=== PATIENT | female | born 1975 | race Hispanic/Latino ===

== ENCOUNTER 2021-02-13 17:02 | Emergency (ER) | payer SELFPAY ==
[2021-02-13] MEDS ORDERED: METRONIDAZOLE 500mg IVPB 500 MG/100 ML BAG IV ONE (17:44)
[2021-02-13] MEDS ORDERED: CEFTRIAXONE/SWI 1gm 1 GM/10 ML SYR ONE ×2 (17:44→20:03)
[2021-02-13] MEDS ORDERED: MORPHINE 4 MG/ML SYR ONE (17:44)
[2021-02-13] MEDS ORDERED: ONDANSETRON 4 MG/2 ML VIAL ONE ×2 (17:44→18:02)
[2021-02-13] MEDS ORDERED: NA CHLORIDE 0.9% 1,000 ML ONE (17:44)
[2021-02-13 17:49] LABS: Absolute Lymphocytes (CBC) 2.4 K/uL (0.7-4.9); Basophils % 0.7 % (0-1.3); Hematocrit 38.9 % (36.0-45.0); Lymphocytes % 30.6 % (15.3-44.8); MPV 8.9 fL (7.6-11.3); RBC Red Blood Cell Count 4.49 M/uL (3.86-4.86)
[2021-02-13 18:06] LABS: ALT/SGPT 75 U/L (12-78); AST/SGOT 39 U/L (15-37); Albumin 3.5 g/dL (3.4-5.0); Alkaline Phosphatase 95 U/L (45-117); BUN Blood Urea Nitrogen 12 mg/dL (7-18); Bicarbonate 24 mmol/L (21-32); Bilirubin Direct < 0.1 mg/dL (0-0.2); Bilirubin Total 0.3 mg/dL (0.2-1.0); Glucose Level 145 mg/dL (74-106); Lipase 81 U/L (73-393); Potassium 3.5 mmol/L (3.5-5.1); Protein, Total 7.1 g/dL (6.4-8.2); Sodium Level 139 mmol/L (136-145)
--- NOTE | 2021-02-13 19:00 | RAD REPORT ---
EXAM DESCRIPTION: Jean Single View02/13/2021 5:54 pm CLINICAL HISTORY: Abdominal COMPARISON: none FINDINGS: The lungs appear clear of acute infiltrate. The heart is normal size IMPRESSION: No acute abnormalities displayed
--- NOTE | 2021-02-13 19:00 | RAD REPORT ---
EXAM DESCRIPTION: CT - Angio Aorta For Dissection - 02/13/2021 6:43 pm CLINICAL HISTORY: . Chest and abdominal pain COMPARISON: None TECHNIQUE: Computed tomography angiography of the chest, abdomen pelvis were obtained. 100 cc Isovue 370 was administered intravenously. Coronal and sagittal reconstruction were performed. MIP 3D reconstruction was performed All CT scans are performed using dose optimization technique as appropriate and may include automated exposure control or mA/KV adjustment according to patient size. FINDINGS: An aortic dissection is not seen. An aortic aneurysm is not displayed. The celiac, SMA and KWAME are patent . A lung consolidation is not present. A pericardial effusion is not seen. A pleural effusion is not n oted. Fatty liver. Liver is borderline enlarged Spleen, pancreas adrenals kidneys demonstrate no significant abnormality. The appendix is normal. Diverticula stem from the colon. Minimal stranding adjacent sigmoid colon. Th is is compatible with diverticulitis. 2 centimeter right ovarian cyst without significant. Small uterine fibroids IMPRESSION: Negative for an aortic dissection. Minimal sigmoid diverticulitis
--- NOTE | 2021-02-13 19:38 | RAD REPORT ---
EXAM DESCRIPTION: USExtrem Venous W Compress Bil02/13/2021 7:32 pm CLINICAL HISTORY: Leg pain COMPARISON: none FINDINGS: The common femoral, superficial femoral, popliteal and posterior tibial veins bilaterally are compressible and demonstrate augmentation. Doppler demonstrates good flow. IMPRESSION: No evidence of deep venous thrombosis involving either lower extremity.
[2021-02-13 19:42] LABS: Urine Blood Trace-intact (Negative); Urine Glucose Negative (Negative); Urine Protein Negative (Negative); Urine Specific Gravity <=1.005 (1.005-1.030)
[2021-02-13] MEDS ORDERED: FAMOTIDINE 20 MG/2 ML VIAL IV ONE (20:03)
--- NOTE | 2021-02-13 21:19 | ER ---
Nurse's Notes [facility] Name: Kiki Santa Age: 45 yrs Sex: Female : 1975 Arrival Date: 02/13/2021 Time: 17:06 Bed 13 Private MD: Diagnosis: Abdominal tenderness;Diverticular disease of intestine;Diverticulitis of intestine, part unspecified, without perforation or abscess without bleeding-sigmoid;Type 2 diabetes mellitus Presentation: 02/13 17:13 Chief complaint: Patient states: LUQ pain for 11 days, was started an antibiotic em without relief, reports nausea, denies fever. Coronavirus screen: Client denies travel out of the [place] in the last 14 days. Ebola Screen: Patient negative for fever greater than or equal to 101.5 degrees Fahrenheit, and additional compatible Ebola Virus Disease symptoms Patient denies exposure to infectious person. Patient denies travel to an Ebola-affected area in the 21 days before illness onset. No symptoms or risks identified at this time. Initial Sepsis Screen: Does the patient meet any 2 criteria? No. Patient's initial sepsis screen is negative. Does the patient have a suspected source of infection? No. Patient's initial sepsis screen is negative. Risk Assessment: Do you want to hurt yourself or someone else? Patient reports no desire to harm self or others. Onset of symptoms was February 13, 2021. 17:13 Method Of Arrival: Ambulatory em 17:13 Acuity: MAYANK 3 em Historical: - Allergies: 17:17 Hydrocodone-Acetaminophen; em - PMHx: 17:15 None; em - PSHx: 17:15 None; em - Immunization history:: Adult Immunizations up to date. - Social history:: Smoking status: Patient denies any tobacco usage or history of. - Family history:: not pertinent. Screenin:04 Abuse screen: Denies threats or abuse. Nutritional screening: No deficits noted. vg1 Tuberculosis screening: No symptoms or risk factors identified. Fall Risk No fall in past 12 months (0 pts). No secondary diagnosis (0 pts). IV access (20 points). Ambulatory Aid- None/Bed Rest/Nurse Assist (0 pts). Gait- Weak (10 pts.). Mental Status- Oriented to own ability (0 pts). Total Riggs Fall Scale indicates No Risk (0-24 pts). Assessment: 18:02 General: Appears in no apparent distress. uncomfortable, Behavior is cooperative, vg1 crying. Pain: Complains of pain in epigastric area, left upper quadrant and left lower quadrant Pain currently is 10 out of 10 on a pain scale. Pain began 2 hours ago. Noted to be crying. Neuro: Level of Consciousness is awake, alert, obeys commands, Oriented to person, place, time, situation. Cardiovascular: Patient's skin is warm and dry. Respiratory: Airway is patent Respiratory effort is even, unlabored. GI: Bowel sounds present X 4 quads. Abd is soft X 4 quads Abd is non tender in left upper quadrant. : No signs and/or symptoms were reported regarding the genitourinary system. EENT: No signs and/or symptoms were reported regarding the EENT system. Derm: Skin is intact, is healthy with good turgor. Musculoskeletal: Circulation, motion, and sensation intact. 19:58 Reassessment: Patient appears in no apparent distress at this time. Patient and/or vg1 family updated on plan of care and expected duration. Pain level reassessed. Patient is alert, oriented x 3, equal unlabored respirations, skin warm/dry/pink. Patient states feeling better. 21:10 Reassessment: Patient appears in no apparent distress at this time. No changes from vg1 previously documented assessment. Patient and/or family updated on plan of care and expected duration. Pain level reassessed. Patient is alert, oriented x 3, equal unlabored respirations, skin warm/dry/pink. Vital Signs: 17:13 BP 139 / 79; Pulse 74; Resp 18; Temp 97.2; Pulse Ox 99% on R/A; Weight 75 kg; Height 5 em ft. 5 in. (165.10 cm); 18:04 BP 169 / 90; Pulse 99; Resp 20; Pulse Ox 96% on R/A; vg1 19:50 BP 134 / 89; Pulse 70; Resp 16; Pulse Ox 100% on R/A; vg1 21:00 BP 115 / 81; Pulse 64; Resp 16; Pulse Ox 100% on R/A; vg1 17:13 Body Mass Index 27.51 (75.00 kg, 165.10 cm) em ED Course: 17:06 Patient arrived in ED. mr 17:11 Madan Collins MD is Attending Physician. gerardo 17:15 Triage completed. em 17:15 Arm band placed on. em 17:27 Oral contrast given. vm2 17:38 Inserted saline lock: 20 gauge in right antecubital area, using aseptic technique. hb Blood collected. 17:51 Ladonna Branch, RN is Primary Nurse. vg1 17:54 Chest Single View XRAY In Process Unspecified. EDMS 18:04 Patient has correct armband on for positive identification. Bed in low position. Call vg1 light in reach. Side rails up X 1. Adult w/ patient. 18:[address] via stretcher. vg1 18:36 EKG done, by ED staff, reviewed by Madan Collins MD COVID swab sent to lab. vg1 18:42 CT Aorta for Dissection In Process Unspecified. EDMS 19:32 US Extremity Venous W Compression Carmelo In Process Unspecified. EDMS 21:12 Hadley Alberts MD is Referral Physician. gerardo 21:40 No provider procedures requiring assistance completed. IV discontinued, intact, vg1 bleeding controlled, No redness/swelling at site. Pressure dressing applied. Administered Medications: 17:41 Drug: Flagyl (metroNIDAZOLE) 500 mg Volume: 100 ml; Route: IVPB; Rate: 200 ml/hr; hb Infused Over: 30 mins; Site: right antecubital; 17:41 Drug: morphine 2 mg Route: IVP; Site: right antecubital; hb 17:41 Drug: Zofran (Ondansetron) 4 mg Route: IVP; Site: right antecubital; hb 17:42 Drug: NS 0.9% 1000 ml Route: IV; Rate: 1 bolus; Site: right antecubital; hb 21:42 Follow up: IV Status: Completed infusion; IV Intake: 1000ml vg1 17:42 Drug: Rocephin (cefTRIAXone) 1 grams Route: IV; Rate: per protocol; Site: right hb antecubital; 17:53 Drug: Zofran (Ondansetron) 4 mg Route: IVP; Site: right antecubital; vg1 18:30 Follow up: Response: No adverse reaction; Nausea is decreased vg1 19:51 Drug: Pepcid (famotidine) 20 mg Route: IVP; Site: right antecubital; vg1 21:40 Follow up: Response: No adverse reaction vg1 19:53 Drug: Rocephin (cefTRIAXone) 1 grams Route: IV; Rate: per protocol; Site: right vg1 antecubital; 21:40 Follow up: IV Status: Completed infusion vg1 21:40 Follow up: Response: No adverse reaction vg1 19:58 Not Given (Patient Refused): Dilaudid (HYDROmorphone) 0.5 mg IVP once; RASS on ADMIN: vg1 Combtv4, Very Agttd3, Agttd2, Rstlss1, AlertClm0, Drwsy-1, Lt Sdtn-2, Mod Sdtn-3, Dp Sdtn-4, UnArsble-5 Intake: 21:42 IV: 1000ml; Total: 1000ml. vg1 Outcome: 21:19 Discharge ordered by . [facility] 21:41 Discharged to home ambulatory, with family. vg1 21:41 Condition: stable 21:41 Discharge instructions given to patient, Instructed on discharge instructions, follow up and referral plans. medication usage, Demonstrated understanding of instructions, follow-up care, medications, Prescriptions given X 5 21:42 Patient left the ED. vg1 Signatures: Dispatcher [employer] Madan Chen MD MD cha Rivera, Di Manohar Castorena RN RN em Baxter, Heather, ROBBIE AVALOS Ladonna Cottrell Ladonna oMrgan, RN RN vg1 Corrections: (The following items were deleted from the chart) 17:17 17:15 Allergies: No Known Allergies; em em
--- NOTE | 2021-02-13 21:20 | EDPHYS ---
Physician Documentation [facility] Name: Kiki Santa Age: 45 yrs Sex: Female : 1975 Arrival Date: 02/13/2021 Time: 17:06 Bed 13 Private MD: ED Physician Madan Collins HPI: 02/13 17:18 This 45 yrs old Female presents to ER via Ambulatory with complaints of gerardo Abdominal Pain. 17:18 The patient presents with abdominal pain abdominal distention in the upper abdomen, in gerardo the lower abdomen. Onset: The symptoms/episode began/occurred 5 day(s) ago. The symptoms do not radiate. Associated signs and symptoms: Pertinent positives: nausea. The symptoms are described as constant, crampy. Modifying factors: The symptoms are alleviated by remaining still, the symptoms are aggravated by movement, pressure, walking. Severity of pain: At its worst the pain was moderate in the emergency department the pain is unchanged. The patient has not experienced similar symptoms in the past. Historical: - Allergies: 17:17 Hydrocodone-Acetaminophen; em - PMHx: 17:15 None; em - PSHx: 17:15 None; em - Immunization history:: Adult Immunizations up to date. - Social history:: Smoking status: Patient denies any tobacco usage or history of. - Family history:: not pertinent. ROS: 17:18 Constitutional: Negative for fever, chills, and weight loss, Eyes: Negative for injury, gerardo pain, redness, and discharge, ENT: Negative for injury, pain, and discharge, Neck: Negative for injury, pain, and swelling, Cardiovascular: Negative for chest pain, palpitations, and edema, Respiratory: Negative for shortness of breath, cough, wheezing, and pleuritic chest pain, Back: Negative for injury and pain, : Negative for injury, bleeding, discharge, and swelling, MS/Extremity: Negative for injury and deformity, Skin: Negative for injury, rash, and discoloration, Neuro: Negative for headache, weakness, numbness, tingling, and seizure, Psych: Negative for depression, anxiety, suicide ideation, homicidal ideation, and hallucinations, Allergy/Immunology: Negative for hives, rash, and allergies, Endocrine: Negative for neck swelling, polydipsia, polyuria, polyphagia, and marked weight changes, Hematologic/Lymphatic: Negative for swollen nodes, abnormal bleeding, and unusual bruising. 17:18 Abdomen/GI: Positive for abdominal pain, nausea, of the left upper quadrant and left lower quadrant. Exam: 17:18 Constitutional: This is a well developed, well nourished patient who is awake, alert, gerardo and in no acute distress. Head/Face: Normocephalic, atraumatic. Eyes: Pupils equal round and reactive to light, extra-ocular motions intact. Lids and lashes normal. Conjunctiva and sclera are non-icteric and not injected. Cornea within normal limits. Periorbital areas with no swelling, redness, or edema. ENT: Nares patent. No nasal discharge, no septal abnormalities noted. Tympanic membranes are normal and external auditory canals are clear. Oropharynx with no redness, swelling, or masses, exudates, or evidence of obstruction, uvula midline. Mucous membranes moist. Neck: Trachea midline, no thyromegaly or masses palpated, and no cervical lymphadenopathy. Supple, full range of motion without nuchal rigidity, or vertebral point tenderness. No Meningismus. Chest/axilla: Normal chest wall appearance and motion. Nontender with no deformity. No lesions are appreciated. Cardiovascular: Regular rate and rhythm with a normal S1 and S2. No gallops, murmurs, or rubs. Normal PMI, no JVD. No pulse deficits. Respiratory: Lungs have equal breath sounds bilaterally, clear to auscultation and percussion. No rales, rhonchi or wheezes noted. No increased work of breathing, no retractions or nasal flaring. Back: No spinal tenderness. No costovertebral tenderness. Full range of motion. Skin: Warm, dry with normal turgor. Normal color with no rashes, no lesions, and no evidence of cellulitis. MS/ Extremity: Pulses equal, no cyanosis. Neurovascular intact. Full, normal range of motion. Neuro: Awake and alert, GCS 15, oriented to person, place, time, and situation. Cranial nerves II-XII grossly intact. Motor strength 5/5 in all extremities. Sensory grossly intact. Cerebellar exam normal. Normal gait. Psych: Awake, alert, with orientation to person, place and time. Behavior, mood, and affect are within normal limits. 17:18 Abdomen/GI: Inspection: abdomen appears normal, Bowel sounds: normal, Palpation: moderate abdominal tenderness, in the left upper quadrant and left lower quadrant, Liver: no appreciated palpable abnormalities, Hernia: not appreciated. 21:26 ECG was reviewed by the Attending Physician. [facility] Vital Signs: 17:13 BP 139 / 79; Pulse 74; Resp 18; Temp 97.2; Pulse Ox 99% on R/A; Weight 75 kg; Height 5 em ft. 5 in. (165.10 cm); 18:04 BP 169 / 90; Pulse 99; Resp 20; Pulse Ox 96% on R/A; vg1 19:50 BP 134 / 89; Pulse 70; Resp 16; Pulse Ox 100% on R/A; vg1 21:00 BP 115 / 81; Pulse 64; Resp 16; Pulse Ox 100% on R/A; vg1 17:13 Body Mass Index 27.51 (75.00 kg, 165.10 cm) em MDM: 17:20 Differential diagnosis: bowel obstruction, diverticulitis, gastritis, Irritable bowel gerardo syndrome, Mesenteric ischemia or infarction, non-specific abd pain, pancreatitis, Perf. Gastric Ulcer, Peritonitis, Ureterolithiasis, urinary tract infection. Data reviewed: vital signs, nurses notes, lab test result(s), EKG, radiologic studies, CT scan, plain films. Data interpreted: ceramic engineer: rate is 74 beats/min, rhythm is regular, Pulse oximetry: on room air is 99 %. Test interpretation: by ED physician or midlevel provider: plain radiologic studies. Counseling: I had a detailed discussion with the patient and/or guardian regarding: the historical points, exam findings, and any diagnostic results supporting the discharge/admit diagnosis, lab results, radiology results. 17:23 Patient medically screened. [facility] 02/13 17:15 Order name: Basic Metabolic Panel [facility] 02/13 17:15 Order name: CBC with Diff [facility] 02/13 17:15 Order name: Hepatic Function [facility] 02/13 17:15 Order name: Lipase [facility] 02/13 17:15 Order name: Urine Culture [facility] 02/13 17:15 Order name: Basic Metabolic Panel; Complete Time: 19:39 [facility] 02/13 17:15 Order name: Liver (Hepatic) Function; Complete Time: 19:39 [facility] 02/13 17:15 Order name: CBC with Automated Diff; Complete Time: 17:56 [facility] 02/13 17:15 Order name: Lipase; Complete Time: 19:39 [facility] 02/13 17:15 Order name: Urine Culture [facility] 02/13 17:59 Order name: Troponin (emerg Dept Use Only); Complete Time: 19:39 [facility] 02/13 18:01 Order name: Test, Serum [facility] 02/13 18:31 Order name: CREATININE WHOLE BLOOD; Complete Time: 19:39 [facility] 02/13 17:15 Order name: Chest Single View XRAY; Complete Time: 19:39 [facility] 02/13 17:59 Order name: CT Aorta for Dissection; Complete Time: 19:39 [facility] 02/13 18:01 Order name: US Extremity Venous W Compression Carmelo; Complete Time: 19:39 [facility] 02/13 19:42 Order name: Urine Dipstick-Ancillary; Complete Time: 21:11 [facility] 02/13 20:51 Order name: SARS-COV-2 RT PCR; Complete Time: 21:11 [facility] 02/13 17:15 Order name: IV Saline Lock; Complete Time: 17:52 [facility] 02/13 17:15 Order name: Labs collected and sent; Complete Time: 17:52 [facility] 02/13 17:15 Order name: Urine Dipstick-Ancillary (obtain specimen); Complete Time: 19:42 [facility] 02/13 17:15 Order name: Urine Test (obtain specimen); Complete Time: 19:42 [facility] 02/13 17:59 Order name: EKG; Complete Time: 18:00 [facility] 02/13 17:59 Order name: EKG - Nurse/Tech; Complete Time: 18:36 gerardo EC:26 Rate is 85 beats/min. Rhythm is regular. QRS [place] is Normal. WA interval is normal. QRS gerardo interval is normal. QT interval is normal. No Q waves. T waves are Normal. No ST changes noted. Clinical impression: Normal ECG and No evidence of ischemia. Interpreted by me. Reviewed by me. Administered Medications: 17:41 Drug: Flagyl (metroNIDAZOLE) 500 mg Volume: 100 ml; Route: IVPB; Rate: 200 ml/hr; hb Infused Over: 30 mins; Site: right antecubital; 17:41 Drug: morphine 2 mg Route: IVP; Site: right antecubital; hb 17:41 Drug: Zofran (Ondansetron) 4 mg Route: IVP; Site: right antecubital; hb 17:42 Drug: NS 0.9% 1000 ml Route: IV; Rate: 1 bolus; Site: right antecubital; hb 21:42 Follow up: IV Status: Completed infusion; IV Intake: 1000ml vg1 17:42 Drug: Rocephin (cefTRIAXone) 1 grams Route: IV; Rate: per protocol; Site: right hb antecubital; 17:53 Drug: Zofran (Ondansetron) 4 mg Route: IVP; Site: right antecubital; vg1 18:30 Follow up: Response: No adverse reaction; Nausea is decreased vg1 19:51 Drug: Pepcid (famotidine) 20 mg Route: IVP; Site: right antecubital; vg1 21:40 Follow up: Response: No adverse reaction vg1 19:53 Drug: Rocephin (cefTRIAXone) 1 grams Route: IV; Rate: per protocol; Site: right vg1 antecubital; 21:40 Follow up: IV Status: Completed infusion vg1 21:40 Follow up: Response: No adverse reaction vg1 19:58 Not Given (Patient Refused): Dilaudid (HYDROmorphone) 0.5 mg IVP once; RASS on ADMIN: vg1 Combtv4, Very Agttd3, Agttd2, Rstlss1, AlertClm0, Drwsy-1, Lt Sdtn-2, Mod Sdtn-3, Dp Sdtn-4, UnArsble-5 Disposition: 02/13/21 21:19 Discharged to Home. Impression: Abdominal tenderness, Diverticular disease of intestine, Diverticulitis of intestine, part unspecified, without perforation or abscess without bleeding - sigmoid, Type 2 diabetes mellitus. - Condition is Stable. - Discharge Instructions: Abdominal Pain, Adult, Diverticulitis, Diverticulitis, [id number], Abdominal Pain, Adult, [id number]. - Prescriptions for Bentyl 20 mg Oral Tablet - take 1 tablet by ORAL route every 6 hours As needed; 20 tablet. Colace 100 mg Oral Tablet - take 1 tablet by ORAL route every 12 hours; 14 tablet. Flagyl 500 mg Oral Tablet - take 1 tablet by ORAL route every 6 hours for 10 days; 20 tablet. Levaquin 500 mg Oral Tablet - take 1 tablet by ORAL route once daily for 7 days; 7 tablet. Zofran 4 mg Oral Tablet - take 1 tablet by ORAL route every 12 hours As needed; 20 tablet. - Medication Reconciliation Form, Thank You Letter, Antibiotic Education, Prescription Opioid Use form. - Follow up: Private Physician; When: 2 - 3 days; Reason: Recheck today's complaints, Continuance of care, Re-evaluation by your physician. Follow up: Hadley Alberts MD; When: 2 - 3 days; Reason: Recheck today's complaints, Re-evaluation by your physician. - Problem is new. - Symptoms have improved. Signatures: Dispatcher [employer] EDMS Madan Collins MD MD cha Munoz, Edgar, RN RN em Emily Cortez, RN RN Ladonna Branch, RN RN vg1 Corrections: (The following items were deleted from the chart) 17:17 17:15 Allergies: No Known Allergies; em em 18:04 17:15 Abdomen Pelvis W Con+CT.RAD.BRZ ordered. [facility] EDTN 20:10 17:55 CORONAVIRUS+MR.LAB.BRZ ordered. [facility] 21:42 21:19 02/13/2021 21:19 Discharged to Home. Impression: Abdominal tenderness; vg1 Diverticular disease of intestine; Diverticulitis of intestine, part unspecified, without perforation or abscess without bleeding - sigmoid; Type 2 diabetes mellitus. Condition is Stable. Forms are Medication Reconciliation Form, Thank You Letter, Antibiotic Education, Prescription Opioid Use. Follow up: Private Physician; When: 2 - 3 days; Reason: Recheck today's complaints, Continuance of care, Re-evaluation by your physician. Follow up: Hadley Alberts; When: 2 - 3 days; Reason: Recheck today's complaints, Re-evaluation by your physician. Problem is new. Symptoms have improved. gerardo
[2021-02-13 22:17] VITALS: TEMP 97.2
[2021-02-13 22:20] VITALS: O2SAT 100
[2021-02-13 22:21] VITALS: BP 115/81
== END 2021-02-13 21:42 | disposition home or self-care (01) ==
LOC: ER 17:02
DX: K57.32 Diverticulitis of large intestine without perforation or abscess without bleeding (principal); K57.30 Diverticulosis of large intestine without perforation or abscess without bleeding; E11.9 Type 2 diabetes mellitus without complications; Z20.822 Contact with and (suspected) exposure to COVID-19; Z88.5 Allergy status to narcotic agent
CPT/HCPCS: 36415; 71045; 71275; 74175; 80048; 80076; 81003; 82565; 83690; 84484; 84703; 85025; 87086; 87088; 93970; 96361; 96365; 96366; 96375; 99284; J0696; J2405; J7030; Q9967; U0003

== ENCOUNTER 2024-01-06 17:06 | Emergency (ER) | payer SELFPAY ==
--- OUTSIDE RECORDS SUMMARY | 2024-01-06 17:09 | XMS REPORT | Continuity of Care Document ---
Author Name Unknown Address [address] [place] [address] [facility] thconnect Address [address] [place] [address] Care Team Providers Care Roofing Technician Name Role Phone Unavailable Unavailable Unavailable Encounters Start Date/Time End Date/Time Encounter Type Admission Type Attending Clinicians Care Facility Care Department Encounter ID Source 2024-01-06 14:14:52 2024-01-06 14:14:52 Outpatient [facility] [id number] Immanuel Felix 2023-07-13 12:08:29 2023-07-13 12:08:29 Outpatient [facility] [id number] Immanuel Felix 2023-05-01 14:49:18 2023-05-01 14:49:18 Outpatient [facility] [id number] Immanuel Felix Results Test Description Test Time Test Comments Results Result Co mments Source HPV HIGH RISK WITH GENOTYPE, [id number] 16:20:29* Test Item Value Reference Range Interpretation Comme nts HPV HIGH RISK INTERP (test code = 04790) NEGATIVE NEGATIVE HPV 16 (test code = 01857) NEGATIVE HPV 18 (test code = 98772) NEGATIVE HPV, HR, OTHER GENOTYPES (test code = 24675) NEGATIVE Testing methodol ogy is real-time PCR utilizing hydrolysis probes with the Mynor Stephan 4800 system. The test individually detects genotypes 16 and 18, as well as the other 12 high risk types (31,33,35,39,45,51,52,56 ,58,59,66,68). The expected result is negative. A negative result does not rule out the presence of HPV not included in the genotype set, a low level of infection or specimen sampling error. UNLESS OTHERWISE INDICATED, ALL TESTING PERFORMED [facility] [employer] [address] [place] [id number] BLACKTOP PAVER OPERATOR: MICAELA CHAWLA M.D. [place] NUMBER [id number] [place]. [id number] COMPREHENSIVE METABOLIC [id number] 04:41:13* Test Item Value Reference Range Interpretation Comme nts GLUCOSE (test code = 2217) 138 MG/DL 70-99 H BUN (test code = 2208) 13 MG/DL 6-20 CREATININE (test code = 2214) 0.52 MG/DL 0.60-1.30 L eGFR (2020 CKD-EPI) (test code = 89748) 115 ML/MIN/1.73 >60 CALC BUN/CREAT (test code = 2235) 25 RATIO 6-28 SODIUM (test code = 223) 141 MEQ/L 133-146 POTASSIUM (test code = 2228) 4.2 MEQ/L 3.5-5.4 CHLORIDE (test code = 2215) 106 MEQ/L 95-107 CARBON DIOXIDE (test code = 2206) 23 MEQ/L 19-31 CALCIUM (test code = 2209) 9.5 MG/DL 8.5-10.5 PROTEIN, TOTAL (test code = 222) 7.0 G/DL 6.1-8.3 ALBUMIN (test code = 2201) 4.4 G/DL 3.5-5.2 CALC GLOBULIN (test code = 2240) 2.6 G/DL 1.9-3.7 CALC A/G RATIO (test code = 2234) 1.7 RATIO 1.0-2.6 BILIRUBIN, TOTAL (test code = 2207) <0.2 MG/DL See_Comment [Automated me ssage] The system which generated this result transmitted reference range: <=1.2. The reference range was not used to interpret this result as normal/abnormal. ALKALINE PHOSPHATASE (test code = 2204) 117 U/L 40-120 AST (test code = 2218) 18 U/L 9-40 ALT (test code = 2219) 20 U/L 5-40 UNLESS OTHERWISE INDICATED, ALL TESTING PERFORMED [facility] [employer] [address] [place] [address] BLACKTOP PAVER OPERATOR: Filemon DIETZIA NUMBER [id number] [place]. [id number] LIPID [id number] 04:41:13* Test Item Value Reference Range Interpretation Comme nts CHOLESTEROL (test code = 2210) 206 MG/DL <200 H TRIGLYCERIDES (test code = 2232) 232 MG/DL <150 H HDL CHOLESTEROL (test code = 2220) 36 MG/DL >39 L CALC LDL CHOL (test code = 2237) 133 MG/DL <100 H NOTE: CALCULATED LDL IS BASED ON JAMIL-DAMON METHOD WHICHINCLUDES ADJUSTABLE TRIGLYCERIDE:VLDL CHOLESTEROL RATIO.THIS FACTOR VARIES BY MEASURED TRIGLYCERIDE AND NON-HDLCHOLESTEROL CONCENTRATIONS WITH INCREASED CALCULATED LDL SEENIN HIGHER TRIGLYCERIDE OR LOWER NON-HDL SPECIMENS. FOR MOREINFORMATION, SEE CLIENT ANNOUNCEMENT AT [email or web address] RISK RATIO LDL/HDL (test code = 2238) 3.69 RATIO <3.22 H HEMOGLOBIN [id number] 03:35:19* Test Item Value Reference Range Interpretation Comme nts HEMOGLOBIN A1c (test code = 79433) 6.1 % 4.2-5.6 H CBC W/AUTO DIFF WITH [id number] 02:25:03* Test Item Value Reference Range Interpretation Comme nts WBC (test code = 1001) 7.5 K/UL 3.5-11.0 RBC (test code = 1002) 4.66 M/UL 3.80-5.40 HEMOGLOBIN (test code = 1003) 13.6 G/DL 11.5-15.5 HEMATOCRIT (test code = 1004) 39.9 % 34.0-45.0 MCV (test code = 1005) 85.6 fL 80.0-99.0 MCH (test code = 1006) 29.2 PG 25.0-33.0 MCHC (test code = 1007) 34.1 G/DL 31.0-36.0 RDW (test code = 1038) 13.4 % 11.5-15.0 NEUTROPHILS (test code = 1008) 60.2 % LYMPHOCYTES (test code = 1010) 31.1 % MONOCYTES (test code = 1011) 6.0 % EOSINOPHILS (test code = 1012) 2.0 % BASOPHILS (test code = 1013) 0.4 % IMMATURE GRANULOCYTES (test code = 1036) 0.3 % NUCLEATED RBCS (test code = 1065) 0.0 /100 WBC'S See_Comment [Automated Aigoua ge] The system which generated this result transmitted reference range: 0.0. The reference range was not used to interpret this result as normal/abnormal. PLATELET COUNT (test code = 1015) 267 K/UL 130-400 ABSOLUTE NEUTROPHILS (test code = 1066) 4.51 K/UL 1.50-7.50 ABSOLUTE LYMPHOCYTES (test code = 1067) 2.33 K/UL 1.00-4.00 ABSOLUTE MONOCYTES (test code = 1068) 0.45 K/UL 0.20-1.00 ABSOLUTE EOSINOPHILS (test code = 1040) 0.15 K/UL 0.00-0.50 ABSOLUTE BASOPHILS (test code = 1069) 0.03 K/UL 0.00-0.20 ABS IMMATURE GRANULOCYTES (test code = 1020) 0.02 K/UL 0.00-0.10 ABS NUCLEATED RBCS (test code = 03584) 0.00 K/UL 0.00-0.11
[2024-01-06] MEDS ORDERED: FAMOTIDINE 20 MG/2 ML VIAL IV ONE (17:41)
[2024-01-06] MEDS ORDERED: FENTANYL CITR 100 MCG/2 ML ONE ×2 (17:41→20:03)
[2024-01-06] MEDS ORDERED: CEFTRIAXONE 1000 MG/VIAL ONE ×2 (17:41→17:58)
[2024-01-06] MEDS ORDERED: NA CHLORIDE 0.9% 1,000 ML ONE (17:41)
[2024-01-06] MEDS ORDERED: ONDANSETRON 4 MG/2 ML VIAL ONE ×2 (17:41→20:03)
[2024-01-06 17:46] LABS: Absolute Basophils 0.1 K/uL (0-0.5); Absolute Eosinophils 0.1 K/uL (0-0.5); Absolute Lymphocytes (CBC) 2.1 K/uL (0.7-4.9); Absolute Monocytes 0.7 K/uL (0.1-1.3); Absolute Neutrophil 7.3 K/uL (1.8-8.0); Basophils % 0.5 % (0-1.3); Hematocrit 37.1 % (36.0-45.0); Hemoglobin 12.7 g/dL (12.0-15.0); Lymphocytes % 20.4 % (15.3-44.8); MCH 29.3 pg (27.0-35.0); MCHC 34.4 g/dL (32.0-36.0); MCV 85.4 fL (80-100); MPV 8.7 fL (7.6-11.3); Monocytes % 6.8 % (3.3-12.3); Neutrophils % 71.3 % (41.7-73.7); Nucleated Red Blood Cells % 0.1 % (0-0); Platelets 210 thou/uL (152-406); RBC Red Blood Cell Count 4.34 M/uL (3.86-4.86); Red Cell Distribution Width 13.6 % (12.1-15.2)
[2024-01-06] MEDS ORDERED: METRONIDAZOLE 500mg IVPB 500 MG/100 ML BAG IV ONE (17:58)
[2024-01-06] MEDS ORDERED: CIPROFLOXACIN 400mg IV 400 MG/200 ML BAG IV ONE (17:58)
[2024-01-06 18:09] LABS: Albumin 3.3 g/dL (3.4-5.0); Albumin/Globulin Ratio 0.8 (1.1-1.8); Anion Gap 7.6 mEq/L (5.0-15.0); Bilirubin Total 0.8 mg/dL (0.2-1.0); Globulin 3.9 g/dL (2.3-3.5); Potassium 3.6 mEq/L (3.5-5.1); Protein, Total 7.2 g/dL (6.4-8.2)
--- NOTE | 2024-01-06 18:32 | RAD REPORT ---
EXAM DESCRIPTION: RADChest Single View01/06/2024 6:01 pm CLINICAL HISTORY: ABDOMINAL DISTENTION COMPARISON: Chest Single View dated 02/13/2021 TECHNIQUE: Portable AP view of the chest. FINDINGS: Decreased inspiratory effort limits evaluation. The lungs are clear. No pneumothorax or e ffusion. The cardiomediastinal contours are unremarkable. IMPRESSION: No acute cardiopulmonary process.
[2024-01-06 19:24] LABS: Specific Gravity 1.018 (1.005-1.030)
--- NOTE | 2024-01-06 19:53 | RAD REPORT ---
EXAM DESCRIPTION: CT - Abdomen Pelvis W Contrast - 01/06/2024 7:40 pm CLINICAL HISTORY: ABD PAIN COMPARISON: Chest Single View dated 01/06/2024 TECHNIQUE: Thin cut axial CT imaging of the abdomen and pelvis was performed following intravenous a dministration of 95 mL Isovue 300. Multiplanar reformats were generated and reviewed. All CT scans are performed using dose optimization technique as appropriate and may include automated exposure control or mA/KV adjustment according to patient size. FINDINGS: No suspicious findings in the lung bases. The liver, spleen, adrenal glands, and pancreas show no suspicious findings. Gallbladder and biliary tree are also without suspicious finding. Symmetric renal function is seen with no hydronephrosis or suspicious renal mass. No dilated bowel loops. Focal wall thickening and adjacent pronounced fat stranding at the descending /sigmoid junction. No appreciable extraluminal gas or abnormal collections. No free air, free fluid o r inflammatory stranding. No hernia, mass or bulky lymphadenopathy. The urinary bladder is without si gnificant finding. Retroflexed uterus with bulky appearance and suggestion of hyperenhancing fibroid along the left wall. No suspicious bony findings. IMPRESSION: Findings of acute uncomplicated diverticulitis at the descending/ sigmoid junction as ab ove. The findings were communicated to Madan Collins on 01/06/2024 at 19:47 hours.
[2024-01-06 20:04] LABS: Specific Gravity 1.018 (1.005-1.030); Sqamous Epithelial <5 /HPF (None Seen); Urine Bacteria <20 /HPF (<20); Urine Bilirubin NEGATIVE (Negative); Urine Blood 1+ (Negative); Urine Clarity Turbid (Clear); Urine Color Yellow (Yellow); Urine Culture Reflex Order NOT NEEDED; Urine Glucose NEGATIVE (Negative); Urine Ketones NEGATIVE (Negative); Urine Microscopic Reflex YN ORDER UMIC; Urine Mucus Slight /HPF (None Seen); Urine Nitrite NEGATIVE (Negative); Urine Protein 1+ (Negative); Urine Urobilinogen Normal (Normal); Urine pH 6.5 (5.0-7.0)
--- NOTE | 2024-01-06 20:05 | EDPHYS ---
Physician Documentation [facility] Name: Kiki Santa Age: 48 yrs Sex: Female : 1975 Arrival Date: 01/06/2024 Time: 17:06 Bed 8 Private MD: ED Physician Madan Collins HPI: 01/05 17:45 This 48 yrs old Female presents to ER via Ambulatory with complaints of Bloody gerardo Stools, Abdominal Pain, Blood in urine. 17:45 The patient presents with abdominal pain in the upper abdomen, in the lower abdomen, gerardo abdominal distention in the upper abdomen, in the lower abdomen. Onset: The symptoms/episode began/occurred 3 day(s) ago. abdominal pain , blood in urine, blood in stools. Onset: The symptoms/episode began/occurred 3 day(s) ago. The symptoms do not radiate. Associated signs and symptoms: Pertinent positives: nausea and vomiting, constipation, dysuria, fever, nausea. The symptoms are described as constant, crampy. Modifying factors: The symptoms are alleviated by nothing, the symptoms are aggravated by nothing. The patient reports fever, that was measured at 100 degrees Fahrenheit. Severity of pain: At its worst the pain was mild moderate in the emergency department the pain is unchanged. Modifying factors: Recent medications: none Denies contact with similarly ill indivduals. Denies recent travel. Associated signs and symptoms: Pertinent positives: abdominal pain. Severity of symptoms: At their worst the symptoms were moderate in the emergency department the symptoms are unchanged despite home interventions. Historical: - Allergies: 17:25 Hydrocodone-Acetaminophen; rs5 17:25 Morphine; rs5 17:25 Amoxicillin; rs5 - PMHx: 17:25 Diabetes mellitus; rs5 - PSHx: 17:25 None; rs5 - Immunization history:: Adult Immunizations up to date. - Infectious Disease History:: Denies. - Social history:: Smoking status: Patient denies any tobacco usage or history of. - Family history:: not pertinent. ROS: 17:45 Constitutional: Negative for fever, chills, and weight loss, Eyes: Negative for injury, gerardo pain, redness, and discharge, ENT: Negative for injury, pain, and discharge, Neck: Negative for injury, pain, and swelling, Cardiovascular: Negative for chest pain, palpitations, and edema, Respiratory: Negative for shortness of breath, cough, wheezing, and pleuritic chest pain, Back: Negative for injury and pain, : Negative for injury, bleeding, discharge, and swelling, MS/Extremity: Negative for injury and deformity, Skin: Negative for injury, rash, and discoloration, Neuro: Negative for headache, weakness, numbness, tingling, and seizure, Psych: Negative for depression, anxiety, suicide ideation, homicidal ideation, and hallucinations, Allergy/Immunology: Negative for hives, rash, and allergies, Endocrine: Negative for neck swelling, polydipsia, polyuria, polyphagia, and marked weight changes, Hematologic/Lymphatic: Negative for swollen nodes, abnormal bleeding, and unusual bruising, 17:45 Abdomen/GI: Positive for abdominal pain, nausea, abdominal cramps, abdominal distension, of the right upper quadrant, left upper quadrant and left lower quadrant, Exam: 17:45 Constitutional: This is a well developed, well nourished patient who is awake, alert, gerardo and in no acute distress. Head/Face: Normocephalic, atraumatic. Eyes: Pupils equal round and reactive to light, extra-ocular motions intact. Lids and lashes normal. Conjunctiva and sclera are non-icteric and not injected. Cornea within normal limits. Periorbital areas with no swelling, redness, or edema. ENT: Nares patent. No nasal discharge, no septal abnormalities noted. Tympanic membranes are normal and external auditory canals are clear. Oropharynx with no redness, swelling, or masses, exudates, or evidence of obstruction, uvula midline. Mucous membranes moist. Neck: Trachea midline, no thyromegaly or masses palpated, and no cervical lymphadenopathy. Supple, full range of motion without nuchal rigidity, or vertebral point tenderness. No Meningismus. Chest/axilla: Normal chest wall appearance and motion. Nontender with no deformity. No lesions are appreciated. Cardiovascular: Regular rate and rhythm with a normal S1 and S2. No gallops, murmurs, or rubs. Normal PMI, no JVD. No pulse deficits. Respiratory: Lungs have equal breath sounds bilaterally, clear to auscultation and percussion. No rales, rhonchi or wheezes noted. No increased work of breathing, no retractions or nasal flaring. Back: No spinal tenderness. No costovertebral tenderness. Full range of motion. Female : Normal external genitalia. Skin: Warm, dry with normal turgor. Normal color with no rashes, no lesions, and no evidence of cellulitis. MS/ Extremity: Pulses equal, no cyanosis. Neurovascular intact. Full, normal range of motion. Neuro: Awake and alert, GCS 15, oriented to person, place, time, and situation. Cranial nerves II-XII grossly intact. Motor strength 5/5 in all extremities. Sensory grossly intact. Cerebellar exam normal. Normal gait. Psych: Awake, alert, with orientation to person, place and time. Behavior, mood, and affect are within normal limits. 17:45 Abdomen/GI: Inspection: distension, obese Bowel sounds: normal, Palpation: nontender, mild abdominal tenderness, in the right upper quadrant, left upper quadrant and left lower quadrant, Liver: no appreciated palpable abnormalities, Hernia: not appreciated, Vital Signs: 17:12 BP 124 / 78; Pulse 89; Resp 18; Pulse Ox 99% on R/A; rs5 20:30 BP 111 / 67; Pulse 84; Resp 16 S; Temp 98.1(O); Pulse Ox 98% on R/A; Pain 5/10; lg3 20:30 Pain Scale: Adult lg3 MDM: 17:08 Patient medically screened. gerardo 17:16 Patient medically screened. gerardo 17:49 Differential Diagnosis sepsis. Differential diagnosis: viral Infection, bacterial gerardo infection, URI, bronchitis, pneumonia UTI, gastroenteritis, Cholelithiasis, diverticulitis, gastritis, gastroesophageal reflux disease, Mesenteric ischemia or infarction. Data reviewed: vital signs, nurses notes, lab test result(s), radiologic studies, CT scan, plain films. Consideration of Admission/Observation Patient was admitted/placed on observation. Escalation of care including admission/observation considered. I considered the following discharge prescriptions or medication management in the emergency department Medications were administered in the Emergency Department. See MAR. Independent interpretation of the following test(s) in the Emergency Department CT Scan: My interpretation is ct abd pelvis see report. Test considered but Not performed: MRI: jair mrcp. Historians other than the Patient: Family Member: doctor , kevin. Care significantly affected by the following chronic conditions: Diabetes, Obesity. 01/05 17:17 Order name: CBC with Diff; Complete Time: 19:23 gerardo 01/05 17:17 Order name: CMP; Complete Time: 19:23 [facility] 01/05 17:17 Order name: Lipase; Complete Time: 19:23 [facility] 01/05 17:17 Order name: Test, Urine; Complete Time: 19:24 [facility] 01/05 17:17 Order name: Urinalysis w/ reflexes; Complete Time: 20:11 [facility] 01/05 17:17 Order name: CT Abd/Pelvis - IV Contrast Only; Complete Time: 20:02 [facility] 01/05 17:18 Order name: Chest Single View XRAY; Complete Time: 19:23 [facility] 01/05 17:17 Order name: IV Saline Lock; Complete Time: 17:54 [facility] 01/05 17:17 Order name: Labs collected and sent; Complete Time: 17:54 [facility] Administered Medications: 17:30 Drug: NS 0.9% IV 1000 ml IV at 1 bolus Per protocol; 1000 mL bolus Route: IV; Rate: 1 rs5 bolus; Site: left antecubital; 20:53 Follow up: Response: No adverse reaction; IV Status: Completed infusion; IV Intake: lg3 1000ml 17:30 Drug: Famotidine IVP 20 mg IVP once; dilute with 10 mL 0.9% NaCl; give over 2 minutes rs5 Route: IVP; Site: left antecubital; 20:52 Follow up: Response: No adverse reaction lg3 17:30 Drug: Ondansetron IVP 4 mg IVP once; over 2 minutes Route: IVP; Site: left antecubital; rs5 20:52 Follow up: Response: No adverse reaction lg3 17:33 Not Given (Duplicate Order): rocephin1 grams IV at per protocol once; Given slow IV gerardo push per pharmacy instructions 17:54 Drug: fentaNYL (PF) IVP 50 mcg IVP once Route: IVP; Site: left antecubital; rs5 20:52 Follow up: Response: No adverse reaction lg3 17:54 Drug: NS 0.9% IV 1000 ml IV at 1 bolus Per protocol; 1000 mL bolus Route: IV; Rate: 1 rs5 bolus; Site: left antecubital; 20:52 Follow up: IV Status: Completed infusion; IV Intake: 1000ml lg3 17:56 Drug: Ciprofloxacin IVPB 400 mg 200 ml IVPB once over 60 mins Volume: 200 ml; Route: rs5 IVPB; Infused Over: 60 mins; Site: left antecubital; 20:52 Follow up: Response: No adverse reaction; IV Status: Completed infusion; IV Intake: lg3 200ml 17:56 Drug: metroNIDAZOLE IVPB 500 mg 100 ml IVPB at 200 ml/hr once over 30 mins Volume: 100 rs5 ml; Route: IVPB; Rate: 200 ml/hr; Infused Over: 30 mins; Site: left antecubital; 20:52 Follow up: Response: No adverse reaction; IV Status: Completed infusion; IV Intake: lg3 100ml 17:56 Drug: Rocephin IV 2 grams IV at per protocol once; Given slow IV push per pharmarcy rs5 instructions Route: IV; Rate: per protocol; Site: left antecubital; 18:05 Follow up: Response: No adverse reaction; IV Status: Completed infusion jl7 20:51 Follow up: Response: No adverse reaction; IV Intake: 10ml lg3 20:51 Drug: fentaNYL (PF) IVP 50 mcg IVP once Route: IVP; Site: left antecubital; lg3 20:53 Follow up: Response: No adverse reaction lg3 20:51 Drug: Ondansetron IVP 4 mg IVP once; over 2 minutes Route: IVP; Site: left antecubital; lg3 20:53 Follow up: Response: No adverse reaction lg3 Disposition Summary: 01/06/24 20:05 Discharge Ordered Notes: Location: Home gerardo Problem: new gerardo Symptoms: have improved gerardo Condition: Stable gerardo Diagnosis - Abdominal pain, Generalized - LEFT LOWER ABDOMINAL PAIN gerardo - Fever, unspecified gerardo - Diverticulitis of large intestine without perforation or abscess with bleeding - gerardo DECENDING /SIGMOID COLON JUNCTION - UTI/ Urinary tract infection, site not specified gerardo Followup: gerardo - With: Private Physician - When: 2 - 3 days - Reason: Recheck today's complaints, Continuance of care, Re-evaluation by your physician Followup: gerardo - With: Aldo Gilliam MD - When: 2 - 3 days - Reason: Recheck today's complaints, Continuance of care, Re-evaluation by your physician Discharge Instructions: - Discharge Summary Sheet gerardo - Abdominal Pain, Adult gerardo - Diverticulitis gerardo - Fever, Adult gerardo - Diverticulitis, [id number] gerardo - Abdominal Pain, Adult, [id number] gerardo - Diabetes Mellitus and Nutrition, Adult [facility] Forms: - Medication Reconciliation Form [facility] - Thank You Letter [facility] - Antibiotic Education [facility] - Prescription Opioid Use [facility] - Patient Portal Instructions [facility] - Leadership Thank You Letter [facility] Prescriptions: - Colace 100 mg Oral Tablet - take 1 tablet ORAL route every 12 hours; 14 tablet; Refills: 0, Product [facility] Selection Permitted - Flagyl 500 mg Oral Tablet - take 1 tablet ORAL route every 6 hours for 10 days; 40 tablet; Refills: 0, [facility] Product Selection Permitted - Cipro 500 mg Oral tablet - take 1 tablet ORAL route every 12 hours for 10 days; 20 tablet; Refills: 0, [facility] Product Selection Permitted - dicyclomine 20 mg Oral tablet - take 1 tablet ORAL route 4 times per day; 28 tablet; Refills: 0, Product [facility] Selection Permitted Signatures: Dispatcher [employer] EDMS Madan Collins MD MD cha Able, Lacie RN RN lg3 Curtis Morse RN RN rs5 Genesis Corey RN jl7 Corrections: (The following items were deleted from the chart) 17:17 17:17 CBC+H.LAB.BRZ ordered. EDMS EDMS 17:17 17:17 COMPREHENSIVE METABOLIC PANEL+C.LAB.BRZ ordered. EDMS EDMS 17:17 17:17 LIPASE+C.LAB.BRZ ordered. EDMS EDMS 17:17 17:17 Test, Urine+UC.LAB.BRZ ordered. EDMS EDMS 17:17 17:17 Urinalysis+U.LAB.BRZ ordered. EDMS EDMS 17:18 17:17 Abdomen Pelvis W Con+CT.RAD.BRZ ordered. EDMS EDMS 20:12 20:12 Urine Culture+BA.LAB.BRZ ordered. EDMS EDMS
--- NOTE | 2024-01-06 20:05 | ER ---
Nurse's Notes [facility] Name: Kiki Santa Age: 48 yrs Sex: Female : 1975 Arrival Date: 01/06/2024 Time: 17:06 Bed 8 Private MD: Diagnosis: Abdominal pain, Generalized-LEFT LOWER ABDOMINAL PAIN;Fever, unspecified;Diverticulitis of large intestine without perforation or abscess with bleeding-DECENDING /SIGMOID COLON JUNCTION;UTI/ Urinary tract infection, site not specified Presentation: 01/05 17:12 Chief complaint: Patient states: Left lower abdominal pain, dizziness and fever x2 rs5 days. Pt reports noticing small amounts of blood in stool and in urine. 17:12 Coronavirus screen: At this time, the client does not indicate any symptoms associated rs5 with coronavirus-19. Ebola Screen: No symptoms or risks identified at this time. Initial Sepsis Screen: Does the patient meet any 2 criteria? No. Patient's initial sepsis screen is negative. Does the patient have a suspected source of infection? No. Patient's initial sepsis screen is negative. Risk Assessment: Do you want to hurt yourself or someone else? Patient reports no desire to harm self or others. Onset of symptoms was January 06, 2024. 17:12 Method Of Arrival: Ambulatory rs5 17:12 Acuity: MAYANK 3 rs5 Historical: - Allergies: 17:25 Hydrocodone-Acetaminophen; rs5 17:25 Morphine; rs5 17:25 Amoxicillin; rs5 - PMHx: 17:25 Diabetes mellitus; rs5 - PSHx: 17:25 None; rs5 - Immunization history:: Adult Immunizations up to date. - Infectious Disease History:: Denies. - Social history:: Smoking status: Patient denies any tobacco usage or history of. - Family history:: not pertinent. Screenin:15 [facility] ED Fall Risk Assessment (Adult) History of falling in the last 3 months, rs5 including since admission No falls in past 3 months (0 pts) Confusion or Disorientation No (0 pts) Intoxicated or Sedated No (0 pts) Impaired Gait No (0 pts) Mobility Assist Device Used No (0 pt) Altered Elimination No (0 pt) Score/Fall Risk Level 0 - 2 = Low Risk Oriented to surroundings, Maintained a safe environment. Abuse screen: Denies threats or abuse. Nutritional screening: No deficits noted. Tuberculosis screening: No symptoms or risk factors identified. Assessment: 17:12 General: Appears in no apparent distress. uncomfortable, Behavior is calm, cooperative. rs5 Pain: Complains of pain in left lower quadrant Pain currently is 8 out of 10 on a pain scale. Quality of pain is described as aching, Is intermittent. Neuro: Level of Consciousness is awake, alert, obeys commands, Oriented to person, place, time, situation. Cardiovascular: Patient's skin is warm and dry. Rhythm is regular. Respiratory: Airway is patent Respiratory effort is even, unlabored, Respiratory pattern is regular, symmetrical. GI: Abdomen is round non-distended, Abd is soft and non tender X 4 quads. Reports noticing small amounts of blood in urine and stool. EENT: No signs and/or symptoms were reported regarding the EENT system. Derm: No signs and/or symptoms reported regarding the dermatologic system. Musculoskeletal: Range of motion: intact in all extremities. 17:25 Reassessment: Patient and/or family updated on plan of care and expected duration. Pain rs5 level reassessed. Patient is alert, oriented x 3, equal unlabored respirations, skin warm/dry/pink. Patient states feeling better. Patient states symptoms have improved. 18:31 Reassessment: Patient and/or family updated on plan of care and expected duration. Pain rs5 level reassessed. Patient is alert, oriented x 3, equal unlabored respirations, skin warm/dry/pink. Patient denies pain at this time. Patient states symptoms have improved. 19:30 General: Appears in no apparent distress. uncomfortable, Behavior is calm, cooperative. lg3 Pain: Complains of pain in left lower quadrant and left upper quadrant Pain currently is 5 out of 10 on a pain scale. Neuro: No deficits noted. Walker Agitation-Sedation Scale (RASS): 0 - Alert and Calm Level of Consciousness is awake, alert, obeys commands, Oriented to person, place, time, situation. Cardiovascular: No deficits noted. Denies chest pain, shortness of breath, Capillary refill < 3 seconds Clubbing of nail beds is absent JVD is absent Patient's skin is warm and dry. Respiratory: No deficits noted. Airway is patent Respiratory effort is even, unlabored, Respiratory pattern is regular, symmetrical. GI: Abdomen is round non-distended, Abd is soft X 4 quads Abdomen is tender to palpation in left lower quadrant Reports lower abdominal pain, upper abdominal pain, nausea. : No deficits noted. No signs and/or symptoms were reported regarding the genitourinary system. EENT: No deficits noted. No signs and/or symptoms were reported regarding the EENT system. Derm: No deficits noted. No signs and/or symptoms reported regarding the dermatologic system. Skin is intact, is healthy with good turgor, Skin is dry, Skin is normal, Skin temperature is warm. Musculoskeletal: No deficits noted. No signs and/or symptoms reported regarding the musculoskeletal system. Circulation, motion, and sensation intact. Range of motion: intact in all extremities. 20:54 Reassessment: Patient appears in no apparent distress at this time. No changes from lg3 previously documented assessment. Patient and/or family updated on plan of care and expected duration. Pain level reassessed. Patient is alert, oriented x 3, equal unlabored respirations, skin warm/dry/pink. Patient states feeling better. Vital Signs: 17:12 BP 124 / 78; Pulse 89; Resp 18; Pulse Ox 99% on R/A; rs5 20:30 BP 111 / 67; Pulse 84; Resp 16 S; Temp 98.1(O); Pulse Ox 98% on R/A; Pain 5/10; lg3 20:30 Pain Scale: Adult lg3 ED Course: 17:07 Patient arrived in ED. im 17:11 Madan Collins MD is Attending Physician. gerardo 17:12 Arm band placed on right wrist. rs5 17:23 Curtis Morse, RN is Primary Nurse. rs5 17:25 Triage completed. rs5 18:03 Chest Single View XRAY In Process Unspecified. EDMS 19:30 Patient has correct armband on for positive identification. Bed in low position. Call lg3 light in reach. Side rails up X 1. Client placed on continuous cardiac and pulse oximetry monitoring. NIBP monitoring applied. Door closed. Noise minimized. Warm blanket given. Family accompanied patient. 19:30 Inserted saline lock: 22 gauge in left antecubital area, using aseptic technique. lg3 19:41 CT Abd/Pelvis - IV Contrast Only In Process Unspecified. EDMS 20:02 Aldo Gilliam MD is Referral Physician. gerardo 20:54 No provider procedures requiring assistance completed. IV discontinued, intact, lg3 bleeding controlled, No redness/swelling at site. Pressure dressing applied. Administered Medications: 17:30 Drug: NS 0.9% IV 1000 ml IV at 1 bolus Per protocol; 1000 mL bolus Route: IV; Rate: 1 rs5 bolus; Site: left antecubital; 20:53 Follow up: Response: No adverse reaction; IV Status: Completed infusion; IV Intake: lg3 1000ml 17:30 Drug: Famotidine IVP 20 mg IVP once; dilute with 10 mL 0.9% NaCl; give over 2 minutes rs5 Route: IVP; Site: left antecubital; 20:52 Follow up: Response: No adverse reaction lg3 17:30 Drug: Ondansetron IVP 4 mg IVP once; over 2 minutes Route: IVP; Site: left antecubital; rs5 20:52 Follow up: Response: No adverse reaction lg3 17:33 Not Given (Duplicate Order): rocephin1 grams IV at per protocol once; Given slow IV gerardo push per pharmacy instructions 17:54 Drug: fentaNYL (PF) IVP 50 mcg IVP once Route: IVP; Site: left antecubital; rs5 20:52 Follow up: Response: No adverse reaction lg3 17:54 Drug: NS 0.9% IV 1000 ml IV at 1 bolus Per protocol; 1000 mL bolus Route: IV; Rate: 1 rs5 bolus; Site: left antecubital; 20:52 Follow up: IV Status: Completed infusion; IV Intake: 1000ml lg3 17:56 Drug: Ciprofloxacin IVPB 400 mg 200 ml IVPB once over 60 mins Volume: 200 ml; Route: rs5 IVPB; Infused Over: 60 mins; Site: left antecubital; 20:52 Follow up: Response: No adverse reaction; IV Status: Completed infusion; IV Intake: lg3 200ml 17:56 Drug: metroNIDAZOLE IVPB 500 mg 100 ml IVPB at 200 ml/hr once over 30 mins Volume: 100 rs5 ml; Route: IVPB; Rate: 200 ml/hr; Infused Over: 30 mins; Site: left antecubital; 20:52 Follow up: Response: No adverse reaction; IV Status: Completed infusion; IV Intake: lg3 100ml 17:56 Drug: Rocephin IV 2 grams IV at per protocol once; Given slow IV push per pharmarcy rs5 instructions Route: IV; Rate: per protocol; Site: left antecubital; 18:05 Follow up: Response: No adverse reaction; IV Status: Completed infusion jl7 20:51 Follow up: Response: No adverse reaction; IV Intake: 10ml lg3 20:51 Drug: fentaNYL (PF) IVP 50 mcg IVP once Route: IVP; Site: left antecubital; lg3 20:53 Follow up: Response: No adverse reaction lg3 20:51 Drug: Ondansetron IVP 4 mg IVP once; over 2 minutes Route: IVP; Site: left antecubital; lg3 20:53 Follow up: Response: No adverse reaction lg3 Medication: 19:30 VIS not applicable for this client. lg3 Intake: 20:51 IV: 10ml; Total: 10ml. lg3 20:52 IV: 100ml; Total: 110ml. lg3 20:52 IV: 1000ml; Total: 1110ml. lg3 20:52 IV: 200ml; Total: 1310ml. lg3 20:53 IV: 1000ml; Total: 2310ml. lg3 Outcome: 20:05 Discharge ordered by . gerardo 20:54 Discharged to home ambulatory, lg3 20:54 Condition: stable 20:54 Discharge instructions given to patient, Instructed on discharge instructions, follow up and referral plans. medication usage, Demonstrated understanding of instructions, follow-up care, medications, Prescriptions given X 2, 20:54 Patient left the ED. lg3 Signatures: Dispatcher [employer] EDMS Madan Collins MD MD cha Leal, Jahala RN RN jl7 Linnea Monge RN RN lg3 Curtis Morse, ROBBIE RN rs5 Britney Shane Corrections: (The following items were deleted from the chart) 20:53 19:30 BP 111 / 67; Pulse 84bpm; Resp 16bpm; Spontaneous; Pulse Ox 98% RA; Temp 98.1F lg3 Oral; Pain 5/10, Adult; lg3
[2024-01-06 21:24] VITALS: BP 111/67; TEMP 98.1; O2SAT 98
== END 2024-01-06 20:54 | disposition home or self-care (01) ==
LOC: ER 17:06
DX: K57.32 Diverticulitis of large intestine without perforation or abscess without bleeding (principal); N39.0 Urinary tract infection, site not specified; R50.9 Fever, unspecified
CPT/HCPCS: 36415; 71045; 74177; 80053; 81001; 81025; 83690; 85025; J0696; J0744; J2405; J3010; J7030; Q9967